=== PATIENT | female | born 1985 | race Two or more races ===

== ENCOUNTER 2023-02-22 21:28 | Emergency (ER) | payer OTHER ==
[~2023-02-22] VITALS: Ht 172.7 cm; Wt 87.7 kg
[2023-02-22 22:22] LABS: Basophils # (auto) 0 10 ^3/uL (0-0.2); Basophils % (auto) 0.4 % (0.0-2.0); Eosinophils # (auto) 0.2 10 ^3/uL (0-0.8); Eosinophils % (auto) 1.6 % (0.0-7.0); Hemoglobin 13.5 g/dL (12.2-16.2); Lymphocytes # (auto) 2.6 10 ^3/uL (0.4-5.4); Lymphocytes % (auto) 24.9 % (10.0-50.0); Mean Corpuscular Hemoglobin 29.3 pg (28.0-32.0); Mean Corpuscular Hgb Conc. 33.8 g/dL (32.0-36.0); Mean Corpuscular Volume 86.9 fL (80.0-100.0); Monocytes # (auto) 0.6 10 ^3/uL (0-1.3); Monocytes % (auto) 5.5 % (0.0-12.0); Neutrophils # (auto) 6.9 10 ^3/uL (1.6-8.6); Neutrophils % (auto) 67.6 % (37.0-80.0); Nucleated Red Blood Cells % 0.1 %; Red Cell Distribution Width 13.3 % (11.8-14.3); White Blood Cell 10.3 10^3/uL (4.4-10.8)
[2023-02-22] MEDS ORDERED: HYDROcodone-ACET 10/325MG TAB PO ONE (22:30)
[2023-02-22 22:33] LABS: Urine Bacteria NONE SEEN /hpf (None Seen); Urine Blood 3+ /uL (Negative); Urine Clarity HAZY (Clear); Urine Color Red (Yellow); Urine Protein, UAD 2+ (Negative); Urine Specific Gravity 1.019 (1.001-1.035); Urine Urobilinogen Normal (Negative); Urine WBC 129 /hpf (0 - 5)
[2023-02-22 22:44] LABS: Alanine Aminotransferase 19 U/L (7-40); Albumin 4.4 g/dL (3.2-4.8); Alkaline Phosphatase 57 U/L (46-116); Anion Gap 9 (5-15); Aspartate Aminotransferase 14 U/L (13-40); BUN/Creatinine Ratio 11.7 (10.0-20.0); Bilirubin, Total 0.4 mg/dL (0.2-1.0); Blood Urea Nitrogen 9 mg/dL (9-23); Calcium 9.2 mg/dL (8.7-10.4); Carbon Dioxide 24 mmol/L (20-30); Chloride 103 mmol/L (98-107); Glucose 115 mg/dL (74-106); Potassium 3.8 mmol/L (3.5-5.1); Sodium 136 mmol/L (136-145)
[2023-02-22 22:45] LABS: Total Protein 7.1 g/dL (5.7-8.2)
[2023-02-23] MEDS ORDERED: SULFAMETHOX W/TRIMETH(800/160MG) DS TAB PO ONE (01:30)
[2023-02-23] MEDS ORDERED: CEPHALEXIN 250 MG CAP PO ONE (01:30)
[2023-02-23] MEDS ORDERED: ACET500T58 PO (01:48)
[2023-02-23] MEDS ORDERED: CEPH500C PO (01:48)
[2023-02-23 04:05] VITALS: BP 117/69; TEMP 97.8; O2SAT 98
[2023-02-23 04:13] VITALS: PULSE 71; RESP 18
== END 2023-02-23 04:12 | disposition home or self-care (01) ==
LOC: ER 21:28
DX: O20.8 Other hemorrhage in early pregnancy (principal); R10.2 Pelvic and perineal pain; O23.41 Unspecified infection of urinary tract in pregnancy, first trimester; N39.0 Urinary tract infection, site not specified; Z3A.00 Weeks of gestation of pregnancy not specified
CPT/HCPCS: 36415; 76801; 76817; 80053; 81001; 81025; 84702; 85025

== ENCOUNTER 2023-02-26 09:31 | Emergency (ER) | payer OTHER ==
[~2023-02-26] VITALS: Ht 152.4 cm; Wt 89.0 kg
[~2023-02-26 09:31] MED LIST: ACET500T58 PO; CEPH500C PO
[2023-02-26 10:47] VITALS: BP 137/64; PULSE 80; RESP 18; TEMP 98.1; O2SAT 100
[2023-02-26] MEDS ORDERED: PREN-96 PO (12:18)
== END 2023-02-26 12:24 | disposition home or self-care (01) ==
LOC: ER 09:31
DX: O20.8 Other hemorrhage in early pregnancy (principal); R10.2 Pelvic and perineal pain; Z3A.01 Less than 8 weeks gestation of pregnancy
CPT/HCPCS: 36415; 84702